=== PATIENT | female | born 1970 | race Caucasian/White ===

== ENCOUNTER 2024-04-29 14:06 | Outpatient (CLI) | payer OTHER, SELFPAY ==
--- NOTE | 2024-04-29 14:14 | MR_ITS ---
WS: [id number] MRI RIGHT KNEE HISTORY: INTERNAL DERANGEMENT R KNEE COMPARISON: None available. Anterior cruciate ligament: Intact. Posterior cruciate ligament: Intact. Medial collateral ligament: Intact. Posterior lateral corner structures: Intact. Medial menisci: Horizontal tear posterior horn extends to the intra-articular surface. Anterior horn is normal. Lateral meniscus: Intact. Normal signal, size and shape. Extensor mechanism: Distal quadriceps tendon and patellar tendons are intact. Fluid and soft tissue: Small amount of fluid at the knee is predominantly soft tissue. No joint effus ion of any significance. No Dickson's cyst. Osseous and articular structures: Patellofemoral compartment: Normal. Medial compartment: Minimal narrowing the medial compartment. Moderate amount of marrow edema along t he medial tibial plateau. No definite fractures identified. Lateral compartment: No marrow edema. No significant narrowing. MR/MR knee RT wo con* [id number] IMPRESSION: 1. Horizontal tear posterior horn medial meniscus. 2. Marrow edema diffusely throughout the medial tibial plateau with cortical i rregularity. No fracture identified. 3. No ACL tear.
== END 2024-04-29 14:07 | disposition home or self-care (01) ==
LOC: RAD 14:06
PROVIDERS: Visit Provider Orthopaedic Surgery
DX: S83.241A Other tear of medial meniscus, current injury, right knee, initial encounter (principal); M23.91 Unspecified internal derangement of right knee; R60.0 Localized edema; X58.XXXA Exposure to other specified factors, initial encounter
CPT/HCPCS: 73721

== ENCOUNTER 2024-06-24 16:40 | Emergency (ER) | payer OTHER, SELFPAY ==
[2024-06-24 16:45] VITALS: BP 101/64; PULSE 59; RESP 16; TEMP 37.1; O2SAT 98; BMI 22.3
--- NOTE | 2024-06-24 16:48 | XRR_ITS ---
PROCEDURE INFORMATION: Exam: XR Left Foot Exam date and time: 06/24/2024 4:59 PM Age: 54 years old Clinical indication: Injury or trauma; Fall; Blunt trauma; Ankle and foot; Left TECHNIQUE: Imaging protocol: Radiologic exam of the left foot. Views: 3 or more views. COMPARISON: CR XR ankle LT min 3V* [id number] 06/24/2024 4:59 PM FINDINGS: Bones/joints: Negative for acute bony abnormality. Soft tissues: Normal. XR/XR foot LT min 3V* [id number] IMPRESSION: No acute findings.
--- NOTE | 2024-06-24 16:48 | XRR_ITS ---
PROCEDURE INFORMATION: Exam: XR Left Ankle Exam date and time: 06/24/2024 4:59 PM Age: 54 years old Clinical indication: Injury or trauma; Fall; Blunt trauma; Ankle and foot; Left TECHNIQUE: Imaging protocol: Radiologic exam of the left ankle. Views: 3 or more views. COMPARISON: CR XR foot LT min 3V* [id number] 06/24/2024 4:59 PM FINDINGS: Bones/joints: Negative for acute bony abnormality. Soft tissues: Unremarkable XR/XR ankle LT min 3V* [id number] IMPRESSION: No acute findings.
--- NOTE | 2024-06-24 17:06 | W.ED.EXTPRO ---
HPI - Extremity Problem General: Chief complaint: Extremity Injury, Lower Stated complaint: left foot injury Time Seen by Provider: 06/24/24 16:57 Source: patient Mode of arrival: ambulatory Limitations: no limitations History of Present Illness: Patient is a 54-year-old female presenting to the emergency department complaining of left foot injury onset earlier today. Patient states she was walking [place] of the vet when she missed a step outside, and had an inversion injury and landed directly onto her left foot. Her pain at this time is noted to be to the dorsal lateral aspect of her foot, no ankle pain or any other proximal radiation of the pain. No previous fractures or injuries to that foot. She took Tylenol for her pain, and has been icing but states that it is still too painful to walk on. She states she is due for a right knee meniscus repair in a week, and wants to know if her left foot is okay. No other symptoms to report at this time. There is a small amount of bruising noted to the dorsal lateral left foot. MD Complaint: extremity pain Onset (ago): hour(s) Pain Consistency: constant Location: left and lower extremity Radiation: none Relieving factors: nothing Exacerbating factors: weight bearing Associated symptoms: Deny chest pain, fever(s) or rash Review of Systems General: Reports: 10 or more systems reviewed and unremarkable except in HPI and below Const: Denies: fever(s) or chills Card: Denies: chest pain Resp: Denies: dyspnea or productive cough GI: Denies: abdominal pain, nausea, vomiting or diarrhea : Denies: flank pain Musc: Reports: extremity pain (Left foot); Denies: neck pain, back pain, extremity swelling, joint pain, joint swelling, joint redness, joint warmth, limited range of motion or muscle weakness Skin/Breast: Denies: rash Neuro: Denies: headache(s), numbness in extremities or weakness in extremities Physical Exam Const: COMMON NORMALS: no acute distress, patient oriented x3, no limitations, healthy appearing, alert and well nourished HENMT: COMMON NORMALS: normocephalic and atraumatic HEAD & SCALP: normocephalic and atraumatic Neck/C-Spine: COMMON NORMALS: full ROM, supple and no meningeal signs Resp: COMMON NORMALS: normal respiratory effort, No use of accessory muscles and clear to auscultation bilaterally AUSCULTATION: clear to auscultation bilaterally Cardio: COMMON NORMALS: regular rate and regular rhythm RATE: regular rate RHYTHM: regular rhythm Extremity: COMMON NORMALS: full ROM, capillary refill normal, no joint enlargement and no clubbing, cyanosis or edema NARRATIVE EXTREMITY EXAM: Tenderness to palpation of patient's left dorsal foot. Pain with plantar and dorsiflexion, worse with dorsiflexion. Small amount of bruising noted. No distal sensory changes. Pulses intact. No obvious signs of trauma. Neuro: COMMON NORMALS: patient oriented x3, moves all extremities, no focal motor deficits and no sensory deficits noted SENSORIUM/ORIENTATION: Yes alert MENINGEAL SIGNS: Yes no meningeal signs Skin: COMMON NORMALS: no rashes or lesions noted GENERAL SKIN EXAM: no rashes or lesions noted Course Vital Signs: Vital signs: Vital Signs Temperature 98.7 F 06/24/24 16:45 Pulse Rate 59 L 06/24/24 16:45 Respiratory Rate 16 06/24/24 16:45 Blood Pressure 101/64 06/24/24 16:45 Pulse Oximetry 98 06/24/24 16:45 Oxygen Delivery Me thod Room Air 06/24/24 16:45 MDM - Extremity (Nontraumatic) Medical Decision Making Patient presented for evaluation of left foot pain after a fall today. Exam revealed some mild bruising to the left foot and pain with range of motion, patient has stated range of motion was difficult for the pain. X-rays did not demonstrate any acute fractures in the foot or ankle. I do believe patient sprained her foot and we will wrap it and give her crutches to weight-bear as tolerated. She is to enact RICE therapy and strict return precautions were given. She does have a surgery of her right knee scheduled for next week, and she can continue this plan. Patient discharged home at this time. Lab Data Radiology Impressions Ankle X-Ray 06/24/24 16:48 IMPRESSION: No acute findings. Foot X-Ray 06/24/24 16:48 IMPRESSION: No acute findings. All radiology interpretation(s) finalized by discharge Discharge Plan Discharge Patient Disposition: Home Clinical Impression: Sprain of foot, left Condition: Stable Discharge Orders: Discharge ED (Routine); Ordered 06/24/24 Ordered By: Carlos Mccullough Referrals: Giselle Arroyo MD [Primary Care Provider] - Discharge Diet: Usual diet Discharge Activity: Limit activity as instructed Patient Instructions: Foot Sprain (ED) Activity Restrictions/Additional Instructions: Weightbearing as tolerated. Rest, ice, compression, and elevation. Tylenol and ibuprofen at home for pain. Gentle range of motion exercises as tolerated. Follow-up with your primary care provider. Return with any new or worsening symptoms. Coding Level of Care Code ED Bowling Alley Operator for Minoo Palomino
[2024-06-24] MEDS: ketorolac 60 mg/2 mL INJ IM (17:09)
[2024-06-24 17:56] VITALS: BP 103/65; PULSE 595; RESP 16; TEMP 37.1; O2SAT 99
== END 2024-06-24 17:55 | disposition home or self-care (01) ==
PROVIDERS: Emergency Provider Physician Assistant; PCP Family Medicine
DX: S93.602A Unspecified sprain of left foot, initial encounter (principal); X50.1XXA Overexertion from prolonged static or awkward postures, initial encounter
CPT/HCPCS: 73610; 73630; 96372; 99284; E0114; J1885

== ENCOUNTER 2024-07-30 11:27 | Outpatient (CLI) | payer OTHER, SELFPAY ==
--- NOTE | 2024-07-30 11:30 | MM_ITS ---
WS: [id number] SCREENING DIGITAL BREAST TOMOSYNTHESIS MAMMOGRAM WITH CAD HISTORY: screening COMPARISON: None available. Bilateral CC and MLO with tomosynthesis and synthetic mammography submitted. Computer aided detection analyzed. Breast composition: The breasts are heterogeneously dense, which may obscure small masses. Irregular asymmetry is noted in the medial LEFT breast below the nipple line. There are additional scattered as ymmetries bilaterally which are probably normal fibroglandular densities. No grouping of calcificatio ns. MM/[place] [id number] IMPRESSION: BI-RADS: 0 - Incomplete: Need additional imaging evaluation FOLLOW UP: Need Additional Imaging LEFT breast: Spot compression views (CC and MLO). True ML. Ultrasound to follow if abnormality persists.
== END 2024-07-30 11:28 | disposition home or self-care (01) ==
LOC: RAD 11:27
PROVIDERS: PCP Family Medicine; Visit Provider Family Medicine
DX: Z12.31 Encounter for screening mammogram for malignant neoplasm of breast (principal); R92.333 Mammographic heterogeneous density, bilateral breasts; N64.89 Other specified disorders of breast
CPT/HCPCS: 77063; 77067

== ENCOUNTER → 2024-09-01 11:02 | Outpatient (BNVA) | payer OTHER, SELFPAY | PROVIDERS: PCP Family Medicine; Visit Provider Family Medicine | DX: Z00.00 Encounter for general adult medical examination without abnormal findings (principal); E11.9 Type 2 diabetes mellitus without complications; J30.2 Other seasonal allergic rhinitis | CPT/HCPCS: 80053; 80061; 84443; 85025 ==

== ENCOUNTER 2024-09-22 09:42 | Outpatient (CLI) | payer OTHER, SELFPAY ==
--- NOTE | 2024-09-22 10:00 | MM_ITS ---
WS: [id number] ADDITIONAL VIEWS LEFT MAMMOGRAM WITH DIGITAL BREAST TOMOSYNTHESIS. HISTORY: abnormal mammagram COMPARISON: 07/30/2024 Spot compression views LEFT breast in CC, MLO projections and true ML submitted with digital breast t omosynthesis and SM. Asymmetry noted in the central medial LEFT breast resolves with additional imaging. There is no resid ual mass. No distortion. No ultrasound necessary. MM/MM diag LT tomosynthesis [id number] IMPRESSION: BI-RADS: 2- Benign FOLLOW UP: 1 Year Follow-up
== END 2024-09-22 09:43 | disposition home or self-care (01) ==
PROVIDERS: PCP Family Medicine; Visit Provider Family Medicine
DX: R92.8 Other abnormal and inconclusive findings on diagnostic imaging of breast (principal)
CPT/HCPCS: 77061; G0279

== ENCOUNTER → 2024-10-14 14:05 | Outpatient (BNVA) | payer OTHER, SELFPAY | PROVIDERS: PCP Family Medicine; Visit Provider Family Medicine | DX: R53.83 Other fatigue (principal); E11.9 Type 2 diabetes mellitus without complications | CPT/HCPCS: 82672; 84144; 84443 ==

== ENCOUNTER → 2025-08-25 14:44 | Outpatient (BNVA) | payer OTHER, SELFPAY | PROVIDERS: PCP Family Medicine; Visit Provider Psychiatry & Neurology Psychiatry | DX: Z79.899 Other long term (current) drug therapy (principal); R53.83 Other fatigue; F41.0 Panic disorder [episodic paroxysmal anxiety]; F31.9 Bipolar disorder, unspecified | CPT/HCPCS: 80053; 80061; 83036; 84443; 85025 ==